=== PATIENT | male | born 1955 | race Caucasian/White ===

== ENCOUNTER → 2021-04-24 | Outpatient (CLI) | payer MEDICARE ==
--- NOTE | 2021-04-24 17:22 | Diagnostic Imaging Report ---
CT Lung Screening INDICATION: Current smoker with a 45 pack year history. Previous history of tuberculosis. TECHNIQUE: Noncontrast, low-dose CT imaging performed according to lung cancer screening protocol. Auto Exposure Controls were utilized during the CT exam to meet ALARA standards for radiation dose reduction. COMPARISON: None FINDINGS: HEART/MEDIASTINUM: Heart size normal with scattered mild to moderate coronary artery calcification. Perhaps coronary artery stent. Non-aneurysmal with mild wall calcification. No suggestion for pathologically enlarged mediastinal lymph nodes on limited, noncontrast imaging. LUNGS/MEASURED PULMONARY NODULES: Mild central bronchial wall thickening. There is no consolidating infiltrate. A few scattered micronodules are present. No concerning pulmonary mass. OTHER: Moderately advanced degenerative changes through the thoracic spine with bridging osteophytes. Anterior wedging loss of height superior T12 vertebral body nonacute in appearance. IMPRESSION: 1. Central bronchial wall thickening could reflect nonspecific infectious or inflammatory process. No consolidating infiltrate. 2. No definitive concerning pulmonary mass that meets criteria to suggest probable active lung cancer. 3. Coronary artery calcification. LUNG-RADS CATEGORY: 2 LUNG SCREENING MANAGEMENT/RECOMMENDATIONS: Continued annual screening with low dose CT in 12 months. Dictated by: Dictated on workstation # [id number]
== END ==
LOC: RAD 15:51
PROVIDERS: ATTEND Nurse Practitioner Family
DX: Z12.2 Encounter for screening for malignant neoplasm of respiratory organs (principal); I25.10 Atherosclerotic heart disease of native coronary artery without angina pectoris; F17.210 Nicotine dependence, cigarettes, uncomplicated
CPT/HCPCS: 71271